=== PATIENT | male | born 1950 | race Caucasian/White ===

== ENCOUNTER 2023-10-13 19:52 | Inpatient (IN) | payer MEDICARE, OTHER ==
[~2023-10-13] VITALS: Ht 182.9 cm; Wt 97.2 kg
[~2023-10-13 19:52] MED LIST: ARIP2TAB3 PO; BUPR300T52 PO; CLON2TAB PO; DILT120C11 PO; ESCI20TA PO; IBUP-1957 PO; LISD60CA PO
[2023-10-13] MEDS ORDERED: IV NS 1000 ML 1,000 ML IV ONE (20:15)
[2023-10-13] MEDS ORDERED: MAGNESIUM SULFATE 2 GM in IV DEXTROSE 5% 100 ML IV ONE (20:15)
[2023-10-13] MEDS ORDERED: IV NORMAL SALINE 1000 ML BAG IV ONE (20:15)
[2023-10-13] MEDS ORDERED: DILTIAZEM HCL 25 MG IV IV ONE (20:15)
[2023-10-13] MEDS ORDERED: POTASSIUM BICARBONATE/CIT AC 25 MEQ TABLET.EFF PO ONE (20:15)
[2023-10-13] MEDS ORDERED: ASPIRIN 81 MG TAB.CHEW PO ONE (20:15)
[2023-10-13] MEDS ORDERED: THIAMINE HCL 100 MG TABLET PO ONE (20:15)
[2023-10-13 20:37] LABS: BASOPHILS % (AUTO) 0.2 % (0.0-2.0); EOSINOPHILS # (AUTO) 0.1 K/uL (0.0-0.7); EOSINOPHILS % (AUTO) 2.2 % (0.0-7.0); HEMATOCRIT 40.9 % (36.7-47.1); HEMOGLOBIN 14.1 g/dL (12.5-16.3); LYMPHOCYTES # (AUTO) 1.6 K/uL (0.8-4.8); LYMPHOCYTES % (AUTO) 26.5 % (20.5-51.5); MEAN CORPUSCULAR HEMOGLOBIN 31.4 uug (23.8-33.4); MEAN CORPUSCULAR HGB CONC 34 g/dL (32.5-36.3); MEAN CORPUSCULAR VOLUME 91.5 fL (73.0-96.2); MONOCYTES # (AUTO) 0.3 K/uL (0.1-1.30); MONOCYTES % (AUTO) 4.8 % (0.0-11.0); NEUTROPHILS # (AUTO) 4.1 K/uL (1.8-8.9); NEUTROPHILS % (AUTO) 66.3 % (38.5-71.5); PLATELET COUNT (AUTO) 208 K/uL (152-348); RED BLOOD CELL COUNT(AUTO) 4.47 MIL/uL (4.06-5.63); RED CELL DISTRIBUTION WIDTH 15.1 % (12.1-16.2); WHITE BLOOD COUNT (AUTO) 6.2 K/uL (3.6-10.2)
[2023-10-13 20:40] LABS: DIFFERENTIAL COMMENT 1
[2023-10-13 21:03] LABS: LACTIC ACID 3.1 mmol/L (0.4-2.0)
[2023-10-13] MEDS ORDERED: MAGNESIUM SULFATE/D5W 200 ML ONE (21:05)
[2023-10-13] MEDS ORDERED: ASPIRIN 81 MG TAB.CHEW ONE (21:05)
[2023-10-13] MEDS ORDERED: POTASSIUM BICARBONATE/CIT AC 25 MEQ TABLET.EFF ONE (21:05)
[2023-10-13] MEDS ORDERED: THIAMINE HCL 100 MG TABLET ONE (21:06)
[2023-10-13 21:07] LABS: ALANINE AMINOTRANSFERASE 45 U/L (16-63); ALBUMIN 3.2 g/dL (3.4-5.0); ALKALINE PHOSPHATASE 108 U/L (50-136); ASPARTATE AMINOTRANSFERASE 31 U/L (15-37); BILIRUBIN,DIRECT 0.2 mg/dL (0.0-0.2); BILIRUBIN,TOTAL 0.3 mg/dL (0.2-1.0); CALCIUM 8.7 mg/dL (8.5-10.1); CARBON DIOXIDE 27 mmol/L (21-32); CHLORIDE 103 mmol/L (98-107); CREATININE 1.1 mg/dL (0.6-1.3); GLUCOSE 98 mg/dL (74-106); NT-PRO BNP 2063 pg/mL (0-125); SODIUM SERUM 143 mmol/L (136-145); TOTAL PROTEIN, SERUM 6.2 g/dL (6.4-8.2); UREA NITROGEN, BLOOD 27 mg/dL (7-18)
[2023-10-13 21:08] LABS: POTASSIUM 2.6 mmol/L (3.5-5.1)
[2023-10-13 21:26] LABS: THYROID STIMULATING HORMONE 1.156 mIU/mL (0.358-3.740)
[2023-10-13] MEDS ORDERED: DILTIAZEM HCL 25 MG IV ONE (21:35)
[2023-10-13] MEDS ORDERED: ENOXAPARIN SODIUM 100 MG/ML DISP.SYRIN SQ ONE (23:00)
[2023-10-14] MEDS ORDERED: ONDANSETRON 4 MG/2 ML VIAL IV PRN
[2023-10-14] MEDS ORDERED: FOLIC ACID 1 MG in IV DEXTROSE 5% 50 ML IV SCH ×2
[2023-10-14] MEDS ORDERED: REMEDY ESSENTIAL ZINC PASTE 113 GM TP PRN
[2023-10-14] MEDS ORDERED: MAGNESIUM HYDROXIDE 30 ML LIQUID UDC PO PRN
[2023-10-14] MEDS ORDERED: ACETAMINOPHEN 325 MG TABLET PO PRN
[2023-10-14 01:15] VITALS: BP 128/59; TEMP 98.1; O2SAT 97
[2023-10-14] MEDS ORDERED: ENOXAPARIN SODIUM 100 MG/ML DISP.SYRIN SQ ONE (01:59)
[2023-10-14] MEDS ORDERED: FOLIC ACID 5 MG/ML VIAL IV ONE (02:12)
[2023-10-14] MEDS ORDERED: THIAMINE HCL 200 MG/2 ML VIAL ONE ×2 (02:13→21:49)
[2023-10-14] MEDS: DILTIAZEM HCL 30 MG TABLET PO SCH ×2 (02:15→07:16)
[2023-10-14] MEDS: THIAMINE HCL INJ 100 MG in IV DEXTROSE 5% 50 ML IV SCH ×2 (02:30→21:59)
[2023-10-14 04:00] VITALS: BP 112/73; TEMP 97.5; O2SAT 96
[2023-10-14] MEDS: PANTOPRAZOLE SODIUM 40 MG TABLET.DR PO SCH (06:58)
[2023-10-14 07:34] LABS: BASOPHILS % (AUTO) 0.4 % (0.0-2.0); EOSINOPHILS # (AUTO) 0.1 K/uL (0.0-0.7); EOSINOPHILS % (AUTO) 1.5 % (0.0-7.0); HEMATOCRIT 40.7 % (36.7-47.1); HEMOGLOBIN 14.2 g/dL (12.5-16.3); LYMPHOCYTES # (AUTO) 1.3 K/uL (0.8-4.8); LYMPHOCYTES % (AUTO) 16.7 % (20.5-51.5); MEAN CORPUSCULAR HEMOGLOBIN 31.9 uug (23.8-33.4); MEAN CORPUSCULAR HGB CONC 35 g/dL (32.5-36.3); MEAN CORPUSCULAR VOLUME 91.5 fL (73.0-96.2); MONOCYTES # (AUTO) 0.4 K/uL (0.1-1.30); NEUTROPHILS # (AUTO) 6.1 K/uL (1.8-8.9); NEUTROPHILS % (AUTO) 76.4 % (38.5-71.5); PLATELET COUNT (AUTO) 215 K/uL (152-348); RED BLOOD CELL COUNT(AUTO) 4.45 MIL/uL (4.06-5.63); RED CELL DISTRIBUTION WIDTH 15.1 % (12.1-16.2); WHITE BLOOD COUNT (AUTO) 7.9 K/uL (3.6-10.2)
[2023-10-14 07:49] LABS: DIFFERENTIAL COMMENT 1
[2023-10-14 07:54] LABS: *BILIRUBIN,URIN NEGATIVE (NEGATIVE); *BLOOD, URINE NEGATIVE (NEGATIVE); *CLARITY,URINE CLEAR (CLEAR); *COLOR,URINE YELLOW (YELLOW); *KETONES,URINE NEGATIVE (NEGATIVE); *PROTEIN,URINE NEGATIVE (NEGATIVE); *UROBILINOGEN,URINE 0.2 E.U./dl (NORMAL); LEUKOCYTE ESTERASE ,URINE NEGATIVE (NEGATIVE); NITRITE, URINE NEGATIVE (NEGATIVE); UGLUCOSE NEGATIVE (NEGATIVE)
[2023-10-14 07:58] LABS: THYROID STIMULATING HORMONE 1.272 mIU/mL (0.358-3.740)
[2023-10-14 08:00] LABS: CALCIUM 8.7 mg/dL (8.5-10.1); CARBON DIOXIDE 25 mmol/L (21-32); CHLORIDE 104 mmol/L (98-107); CREATININE 0.7 mg/dL (0.6-1.3); GLUCOSE 107 mg/dL (74-106); PHOSPHOROUS 4.2 mg/dL (2.5-4.9); POTASSIUM 3.3 mmol/L (3.5-5.1); SODIUM SERUM 140 mmol/L (136-145); UREA NITROGEN, BLOOD 24 mg/dL (7-18)
[2023-10-14] MEDS ORDERED: ENOXAPARIN SODIUM 100 MG/ML DISP.SYRIN SQ SCH (09:00)
[2023-10-14] MEDS ORDERED: LORAZEPAM 1 MG TABLET PO PRN (10:15)
[2023-10-14] MEDS ORDERED: POTASSIUM CHLORIDE 20 MEQ POWDER PACKET GT ONE (10:15)
[2023-10-14] MEDS: FOLIC ACID 1 MG TABLET PO SCH (11:02)
[2023-10-14] MEDS: THIAMINE HCL 100 MG TABLET PO SCH (11:03)
[2023-10-14] MEDS: DIGOXIN 125 MCG TABLET PO SCH (11:11)
[2023-10-14] MEDS: CARVEDILOL 6.25 MG TABLET PO SCH ×2 (11:11→17:13)
[2023-10-14] MEDS ORDERED: DIGO125T PO (11:29)
[2023-10-14] MEDS ORDERED: CARV3.122 PO (11:29)
[2023-10-14] MEDS ORDERED: APIX5TAB PO (11:29)
[2023-10-14] MEDS ORDERED: ALFU10TA10 PO (11:29)
[2023-10-14] MEDS ORDERED: DILT60TA3 PO (11:29)
[2023-10-14] MEDS ORDERED: FLUO40CA49 PO (11:29)
[2023-10-14] MEDS ORDERED: PANT40TA49 PO (11:29)
[2023-10-14] MEDS ORDERED: LEVO50TA8 PO (11:29)
[2023-10-14] MEDS ORDERED: CLON2TAB11 PO (11:29)
[2023-10-14] MEDS ORDERED: FURO40TA5 PO (11:29)
[2023-10-14] MEDS ORDERED: ARIP5TAB10 PO (11:29)
[2023-10-14 11:37] VITALS: BP 121/81; TEMP 97.7; O2SAT 96
[2023-10-14 15:47] VITALS: BP 121/89; TEMP 98.3; O2SAT 99
[2023-10-14 20:03] VITALS: BP 109/80; TEMP 97.8; O2SAT 95
[2023-10-14] MEDS ORDERED: APIXABAN 5 MG TABLET PO SCH (21:00)
[2023-10-14] MEDS ORDERED: THIAMINE HCL 100 MG TABLET ONE (21:08)
[2023-10-14] MEDS: APIXABAN 5 MG TABLET PO SCH (21:29)
[2023-10-15 00:27] VITALS: BP 128/85; TEMP 98.5; O2SAT 99
[2023-10-15 05:35] VITALS: BP 122/81; TEMP 98; O2SAT 95
[2023-10-15] MEDS: PANTOPRAZOLE SODIUM 40 MG TABLET.DR PO SCH (06:04)
[2023-10-15] MEDS ORDERED: THIAMINE HCL 100 MG TABLET PO SCH (09:00)
[2023-10-15] MEDS: APIXABAN 5 MG TABLET PO SCH (09:37)
[2023-10-15] MEDS: FOLIC ACID 1 MG TABLET PO SCH (09:37)
[2023-10-15] MEDS: THIAMINE HCL 100 MG TABLET PO SCH (09:38)
[2023-10-15] MEDS: CARVEDILOL 6.25 MG TABLET PO SCH (09:41)
[2023-10-15] MEDS: DIGOXIN 125 MCG TABLET PO SCH (09:41)
[2023-10-15] MEDS ORDERED: FLUOXETINE HCL 20 MG CAPSULE PO SCH (09:58)
[2023-10-15 11:24] VITALS: BP 119/85; TEMP 97.5; O2SAT 97
[2023-10-15] MEDS ORDERED: FLUO20CA42 PO (12:35)
[2023-10-15] MEDS ORDERED: CARV6.252 PO (12:35)
[2023-10-15] MEDS ORDERED: APIX5TAB PO (12:35)
[2023-10-15] MEDS ORDERED: DIGO125T5 PO (12:35)
[2023-10-15] MEDS ORDERED: POTA10CA43 PO (12:35)
[2023-10-15] MEDS ORDERED: FURO40TA5 PO (12:36)
[2023-10-15] MEDS ORDERED: FOLI1TAB94 PO (12:36)
[2023-10-15] MEDS ORDERED: PANT40TA49 PO (12:36)
[2023-10-15] MEDS ORDERED: DIGOXIN 125 MCG TABLET PO SCH (13:00)
[2023-10-15 15:06] VITALS: BP 115/86; TEMP 97.6; O2SAT 93
[2023-10-15] MEDS ORDERED: APIXABAN 5 MG TABLET PO SCH (17:00)
[2023-10-15] MEDS ORDERED: ALFUZOSIN HCL 10 MG TAB.SR.24H PO SCH (17:00)
[2023-10-15] MEDS ORDERED: CARVEDILOL 3.125 MG TABLET PO SCH (17:00)
[2023-10-16] MEDS ORDERED: PANTOPRAZOLE SODIUM 40 MG TABLET.DR PO SCH (09:00)
[2023-10-16] MEDS ORDERED: Medication Not On Formulary EA (Fluoxetine Hcl 40 MG) PO SCH (09:00)
[2023-10-16] MEDS ORDERED: CLONAZEPAM 1 MG TABLET PO SCH (09:00)
[2023-10-16] MEDS ORDERED: ARIPIPRAZOLE 5 MG TABLET PO SCH (09:00)
[2023-10-16] MEDS ORDERED: LEVOTHYROXINE SODIUM 50 MCG TABLET PO SCH (09:00)
== END 2023-10-15 17:15 | disposition home or self-care (01) | DRG 309 ==
LOC: ER 19:59 → TELE3 22:56 → MEDSURG3 10-15 08:19
PROVIDERS: ADMIT Nurse Practitioner Acute Care; ATTEND Nurse Practitioner Acute Care
DX: I48.20 Chronic atrial fibrillation, unspecified (principal); E44.1 Mild protein-calorie malnutrition; I50.32 Chronic diastolic (congestive) heart failure; E87.20 Acidosis, unspecified; N17.9 Acute kidney failure, unspecified; I95.1 Orthostatic hypotension; E87.6 Hypokalemia; C61 Malignant neoplasm of prostate; I11.0 Hypertensive heart disease with heart failure; Z79.01 Long term (current) use of anticoagulants; Z79.899 Other long term (current) drug therapy; E88.09 Other disorders of plasma-protein metabolism, not elsewhere classified; F10.10 Alcohol abuse, uncomplicated; Y90.6 Blood alcohol level of 120-199 mg/100 ml; Z68.29 Body mass index [BMI] 29.0-29.9, adult; T50.2X5A Adverse effect of carbonic-anhydrase inhibitors, benzothiadiazides and other diuretics, initial encounter; Q23.1 Congenital insufficiency of aortic valve; Y92.89 Other specified places as the place of occurrence of the external cause
CPT/HCPCS: 36415; 71045; 83605; 83735; 84100; 84443; 84484; 85025; 85730; 93005; 93307; G0378; G0480; J1650; J3411; J3475; J3490; J7040; J8499